=== PATIENT | female | born 2000 | race Two or more races ===

== ENCOUNTER 2023-01-03 09:03 | Emergency (ER) | payer OTHER ==
[2023-01-03 09:26] VITALS: BMI 17.7
[2023-01-03] MEDS ORDERED: SODIUM CHLORIDE 0.9% 500 ML INFUS.BAG IV ONE (10:08)
[2023-01-03] MEDS ORDERED: METOCLOPRAMIDE HCL INJECTION 10 MG/2 ML VIAL IVPB ONE (10:09)
[2023-01-03] MEDS ORDERED: ACETAMINOPHEN 1000 MG/100 ML BAG IVPB ONE (10:10)
[2023-01-03] MEDS ORDERED: METOCLOPRAMIDE HCL INJECTION 10 MG/2 ML VIAL ONE (10:27)
[2023-01-03] MEDS ORDERED: ACETAMINOPHEN INJECTION 100 ML IVPB ONE (10:27)
[2023-01-03 14:42] LABS: BASO % 0.1 % (0-2.0); EOS % 3.1 % (0-4.5); HEMATOCRIT 40.1 % (32.4-45.2); HEMOGLOBIN 13.5 GM/dL (10.7-15.3); MCH 28.8 pg (25.7-33.7); MCHC 33.7 g/dl (32.0-36.0); MEAN CELL VOLUME 85.4 fl (80-96); MEAN PLT VOLUME 9.3 fl (7.5-11.1); MONO % 1.7 % (3.8-10.2); NEUT % 78.1 % (42.8-82.8); PLATELET COUNT 204 10^3/uL (134-434); RDW 14.9 % (11.6-15.6); WHITE BLOOD COUNT 7.9 K/mm3 (4.0-10.0)
[2023-01-03 14:49] LABS: INR 1.31 (0.83-1.09); PROTHROMBIN TIME (PATIENT) 15.2 SEC (9.7-13.0)
[2023-01-03 14:51] LABS: ACTIVATED PTT 38.1 SECONDS (25.2-36.5)
[2023-01-03 14:53] LABS: POTASSIUM 3.8 mmol/L (3.5-5.1)
[2023-01-03 14:55] LABS: CALCIUM 8.6 mg/dL (8.5-10.1)
[2023-01-03 14:56] LABS: BLOOD UREA NITROGEN 9.9 mg/dL (7-18); MAGNESIUM 1.7 mg/dL (1.8-2.4)
[2023-01-03 14:58] LABS: CREATININE 0.9 mg/dL (0.55-1.3)
[2023-01-03 15:01] LABS: BILIRUBIN,TOTAL 1.7 mg/dL (0.2-1); TOT PROT 7.6 g/dl (6.4-8.2)
[2023-01-03 15:54] VITALS: BP 110/78; PULSE 98; RESP 16; TEMP 99
== END 2023-01-03 15:55 | disposition home or self-care (01) ==
LOC: JER 09:03
PROC: 3E033GC Introduction of Other Therapeutic Substance into Peripheral Vein, Percutaneous Approach (ICD-10-PCS; principal; 2023-01-03)
PROC: 3E033NZ Introduction of Analgesics, Hypnotics, Sedatives into Peripheral Vein, Percutaneous Approach (ICD-10-PCS; 2023-01-03)
DX: R53.1 Weakness (principal); R53.83 Other fatigue; R51.9 Headache, unspecified; R11.0 Nausea; M79.10 Myalgia, unspecified site; R68.83 Chills (without fever); R42 Dizziness and giddiness; R05.9 Cough, unspecified; Z20.822 Contact with and (suspected) exposure to COVID-19
CPT/HCPCS: 0241U-QW; 36415; 70450-TC; 71045-TC-FY; 80053; 83735; 84703; 85025; 85610; 85730; 93005; 93010; 99285-25